=== PATIENT | male | born 1945 | race Caucasian/White ===

== ENCOUNTER 2024-12-01 09:14 | Inpatient (IN) | payer MEDICARE ==
--- NOTE | 2024-12-01 09:27 | ED ---
General Adult HPI - General Chief complaint: Shortness of Breath Stated complaint: SOB Time Seen by Provider: 12/01/24 09:20 Source: patient, EMS, RN notes reviewed, old records reviewed Mode of arrival: EMS - History of Present Illness Initial comments: This is a 79-year-old male who presents to the emergency department complaining of difficulty breathing since he woke up at 6:00 this morning. Patient states he took 6 breathing treatments and hit his inhaler multiple times any continues to have difficulty breathing. Patient Nuys any recent fever chills or cough or patient has any chest pain or palpitation. Patient states his only complaint is that he cannot get a enough air. Patient denies any recent fever chills or cough. Patient has any swelling to the legs or calf tenderness. Patient denies any abdominal pain patient Nuys nausea vomiting diarrhea. - Related Data Home Medications Medication Instructions Recorded Confirmed Albuterol Sulfate [Albuterol 1 - 2 puff PO RT-QID PRN 12/01/24 12/01/24 Sulfate Hfa] Clopidogrel [Plavix] 75 mg PO DAILY 12/01/24 12/01/24 Fluticasone/Umeclidin/Vilanter 1 puff INHALATION RT-DAILY 12/01/24 12/01/24 [Trelegy Ellipta 100-62.5-25] Ipratropium-Albuterol Nebulize 3 ml INHALATION 5XD PRN 12/01/24 12/01/24 [Duoneb 0.5 mg-3 mg/3 ml Soln] Levothyroxine Sodium [Synthroid] 112 mcg PO DAILY 12/01/24 12/01/24 Losartan [Cozaar] 25 mg PO DAILY 12/01/24 12/01/24 carvediloL [Coreg] 6.25 mg PO BID 12/01/24 12/01/24 Allergies Allergy/AdvReac Type Severity Reaction Status Date / Time chlorhexidine Allergy Rash/Hives Verified 12/01/24 11:36 [From ChloraPrep Clear] isopropyl alcohol Allergy Rash/Hives Verified 12/01/24 11:36 [From ChloraPrep Clear] Penicillins Allergy Unknown Verified 12/01/24 11:26 Childhood Review of Systems ROS Statement: Those systems with pertinent positive or pertinent negative responses have been documented in the HPI. ROS Other: All systems not noted in ROS Statement are negative. Past Medical History Past Medical History: COPD, Myocardial Infarction (ND), Thyroid Disorder Additional Past Medical History / Comment(s): emphysema, CAD, Past Surgical History: Appendectomy Additional Past Surgical History / Comment(s): open heart, thyroid removal, Smoking Status: Current every day smoker Past Alcohol Use History: None Reported Past Drug Use History: None Reported General Exam - General Exam Comments Initial Comments: GENERAL: Patient is well-developed and well-nourished. Patient is nontoxic and well- hydrated and is in mild distress. ENT: Neck is soft and supple. No significant lymphadenopathy is noted. Oropharynx is clear. Moist mucous membranes. Neck has full range of motion without eliciting any pain. There is no thyroid enlargement and no masses were felt. EYES: The sclera were anicteric and conjunctiva were pink and moist. Extraocular movements were intact and pupils were equal round and reactive to light. Eyelids were unremarkable. PULMONARY: Patient has diffuse wheezing CARDIOVASCULAR: There is a regular rate and rhythm without any murmurs gallops or rubs. Femoral pulses are equal bilaterally ABDOMEN: Soft and nontender with normal bowel sounds. No palpable organomegaly was noted. There is no palpable pulsatile mass. SKIN: Skin is clear with no lesions or rashes and otherwise unremarkable. NEUROLOGIC: Patient is alert and oriented x3. Cranial nerves II through XII are grossly intact. Motor and sensory are also intact. Normal speech, volume and content. Symmetrical smile. Cerebellar exam grossly intact. MUSCULOSKELETAL: Normal extremities with adequate strength and full range of motion. No lower extremity swelling or edema. No calf tenderness. LYMPHATICS: No significant lymphadenopathy is noted PSYCHIATRIC: Normal psychiatric evaluation. Normal interpersonal interactions appears functi onally intact in deals appropriately with others. No signs of depression. No signs of anxiety. No delusions. No hallucinations. Course Vital Signs 12/01/24 12/01/24 12/01/24 09:16 09:38 09:50 Temperature 97.4 F L Pulse Rate 75 78 76 Respiratory 18 Rate Blood Pressure 126/80 O2 Sat by Pulse 96 Oximetry 12/01/24 12/01/24 12/01/24 10:14 11:03 11:05 Temperature Pulse Rate 84 69 74 Respiratory 18 18 Rate Blood Pressure 111/73 114/70 O2 Sat by Pulse 96 95 Oximetry 03/26/25 03/26/25 03/26/25 11:22 11:59 12:09 Temperature Pulse Rate 80 76 63 Respiratory 20 18 Rate Blood Pressure 127/78 139/81 O2 Sat by Pulse 90 L 94 L Oximetry Medical Decision Making - Medical Decision Making EKG is interpreted by myself but EKG shows a sinus rhythm at 76 bpm [place] interval 157 QRS is 104 QT interval 374 QTc is 404. Patient's EKG shows some slight ST segment depression in V4 through V6. Was pt. sent in by a medical professional or institution (ZARINA Youngblood, ROADING ENGINEER, urgent care, hospital, or detention...) When possible be specific @ -No Did you speak to anyone other than the patient for history (EMS, parent, family, police, friend...)? What history was obtained from this source @ -No Did you review nursing and triage notes (agree or disagree)? Why? @ -I reviewed and agree with nursing and triage notes Were old charts reviewed (outside hosp., previous admission, EMS record, old EKG, old radiological studies, urgent care reports/EKG's, detention records)? Report findings @ -No old charts were reviewed Differential Diagnosis? @ -Differential Dyspnea: Coronary syndrome, arrhythmia, tamponade, asthma, COPD, pulmonary embolism, pneumonia, pneumothorax, pulmonary effusion, anaphylaxis, diabetic ketoacidosis, flailed chest, pulmonary contusion, diaphragmatic rupture, anemia, neuromuscular, this is not meant to be an all-inclusive list. EKG interpreted by me (3pts min.). @ -As above X-rays interpreted by me (1pt min.). @ -Chest x-ray shows no acute abnormality CT interpreted by me (1pt min.). @ -None done U/S interpreted by me (1pt. min.). @ -None done What testing was considered but not performed or refused? (CT, X-rays, U/S, labs)? Why? @ -None What meds were considered but not given or refused? Why? @ -None Did you discuss the management of the patient with other professionals (professionals i.e. ZARINA Youngblood, ROADING ENGINEER, lab, RT, psych nurse, social services manager, plate cleaner, teacher, fourth officer, business case analyst)? Give summary @ -[facility]mit the patient wrote admitting orders Was smoking cessation discussed for >3mins.? @ -No Was critical care preformed (if so, how long)? @ -35 minutes Were there social determinants of health that impacted care today? How? (Homelessness, low income, unemployed, alcoholism, drug addiction, transport ation, low edu. Level, literacy, decrease access to med. care, snf, rehab)? @ -No Was there de-escalation of care discussed even if they declined (Discuss DNR or withdrawal of care, Hospice)? DNR status @ -No What co-morbidities impacted this encounter? (DM, HTN, Smoking, COPD, CAD, Cancer, CVA, ARF, Chemo, Hep., AIDS, mental health diagnosis, sleep apnea, morbid obesity)? @ -None Was patient admitted / discharged? Hospital course, mention meds given and route, prescriptions, significant lab abnormalities, going to OR and other pertinent info. @ -Patient received multiple breathing treatments magnesium and steroids. Patient also received antibiotics because of his COPD history. Patient will be admitted because he is still wheezing diffusely. [facility] Undiagnosed new problem with uncertain prognosis? @ -No Drug Therapy requiring intensive monitoring for toxicity (Heparin, Nitro, Insulin, Cardizem)? @ -No Were any procedures done? @ -No Diagnosis/symptom? @ -COPD exacerbation Acute, or Chronic, or Acute on Chronic? @ -Acute Uncomplicated (without systemic symptoms) or Complicated (systemic symptoms)? @ -Complicated Side effects of treatment? @ -No Exacerbation, Progression, or Severe Exacerbation? @ -Severe exacerbation Poses a threat to life or bodily function? How? (Chest pain, USA, ND, pneumonia, PE, COPD, DKA, ARF, appy, cholecystitis, CVA, Diverticulitis, Homicidal, Suicidal, threat to staff... and all critical care pts) @ -Yes this can lead to hypoxia and endorgan dysfunction - Lab Data Result diagrams: 12/01/24 09:37 12/01/24 09:37 Lab Results 12/01/24 12/01/24 12/01/24 Range/Units 09:37 09:37 09:37 WBC 8.3 (3.8-10.6) k/uL RBC 4.61 (4.30-5.90) m/uL Hgb 14.3 (13.0-17.5) gm/dL Hct 45.6 (39.0-53.0) % MCV 99.0 (80.0-100.0) fL MCH 31.1 (25.0-35.0) pg MCHC 31.4 (31.0-37.0) g/dL RDW 14.5 (11.5-15.5) % Plt Count 210 (150-450) k/uL MPV 7.7 Neutrophils % 76 % Lymphocytes % 10 % Monocytes % 5 % Eosinophils % 7 % Basophils % 0 % Neutrophils # 6.3 (1.3-7.7) k/uL Lymphocytes # 0.8 L (1.0-4.8) k/uL Monocytes # 0.4 (0-1.0) k/uL Eosinophils # 0.6 (0-0.7) k/uL Basophils # 0.0 (0-0.2) k/uL Hypochromasia Slight PT 10.7 (10.0-12.5) sec INR 1.0 (<1.2) APTT 22.9 (22.0-30.0) sec Sodium 134 L (137-145) mmol/L Potassium 4.7 (3.5-5.1) mmol/L Chloride 99 (98-107) mmol/L Carbon Dioxide 32 H (22-30) mmol/L Anion Gap 3 mmol/L BUN 21 H (9-20) mg/dL Creatinine 1.09 (0.66-1.25) mg/dL Est GFR (CKD-EPI)AfAm 75 (>60 ml/min/1.73 sqM) Est GFR (CKD-EPI)NonAf 65 (>60 ml/min/1.73 sqM) Glucose 118 H (74-99) mg/dL Calcium 10.6 H (8.4-10.2) mg/dL Magnesium 1.9 (1.6-2.3) mg/dL Total Bilirubin 0.4 (0.2-1.3) mg/dL AST 23 (17-59) U/L ALT 24 (4-49) U/L Alkaline Phosphatase 40 (38-126) U/L Troponin I (0.000-0.034) ng/mL Total Protein 6.3 (6.3-8.2) g/dL Albumin 3.8 (3.5-5.0) g/dL Influenza Type A (PCR) (Not Detectd) Influenza Type B (PCR) (Not Detectd) RSV (PCR) (Not Detectd) SARS-CoV-2 (PCR) (Not Detectd) 12/01/24 12/01/24 Range/Units 09:37 09:37 WBC (3.8-10.6) k/uL RBC (4.30-5.90) m/uL Hgb (13.0-17.5) gm/dL Hct (39.0-53.0) % MCV (80.0-100.0) fL MCH (25.0-35.0) pg MCHC (31.0-37.0) g/dL RDW (11.5-15.5) % Plt Count (150-450) k/uL MPV Neutrophils % % Lymphocytes % % Monocytes % % Eosinophils % % Basophils % % Neutrophils # (1.3-7.7) k/uL Lymphocytes # (1.0-4.8) k/uL Monocytes # (0-1.0) k/uL Eosinophils # (0-0.7) k/uL Basophils # (0-0.2) k/uL Hypochromasia PT (10.0-12.5) sec INR (<1.2) APTT (22.0-30.0) sec Sodium (137-145) mmol/L Potassium (3.5-5.1) mmol/L Chloride (98-107) mmol/L Carbon Dioxide (22-30) mmol/L Anion Gap mmol/L BUN (9-20) mg/dL Creatinine (0.66-1.25) mg/dL Est GFR (CKD-EPI)AfAm (>60 ml/min/1.73 sqM) Est GFR (CKD-EPI)NonAf (>60 ml/min/1.73 sqM) Glucose (74-99) mg/dL Calcium (8.4-10.2) mg/dL Magnesium (1.6-2.3) mg/dL Total Bilirubin (0.2-1.3) mg/dL AST (17-59) U/L ALT (4-49) U/L Alkaline Phosphatase (38-126) U/L Troponin I <0.012 (0.000-0.034) ng/mL Total Protein (6.3-8.2) g/dL Albumin (3.5-5.0) g/dL Influenza Type A (PCR) Not Detected (Not Detectd) Influenza Type B (PCR) Not Detected (Not Detectd) RSV (PCR) Not Detected (Not Detectd) SARS-CoV-2 (PCR) Not Detected (Not Detectd) Disposition Clinical Impression: Acute exacerbation of chronic obstructive pulmonary disease Disposition: ADMITTED IP TO THIS HOSP Referrals: None,Stated [REFERRING] - 1-2 days Time of Disposition: 12:34
[2024-12-01] MEDS: IPRATROPIUM-ALBUTEROL 3 ML NEB INHALATION STA ×2 (09:35→11:05)
[2024-12-01 09:55] LABS: Basophils % (A) 0 %; Eosinophils # (A) 0.6 k/uL (0-0.7); Eosinophils % (A) 7 %; HCT 45.6 % (39.0-53.0); HGB 14.3 gm/dL (13.0-17.5); Hypochromasia Slight; Lymphocytes # (A) 0.8 k/uL (1.0-4.8); Lymphocytes % (A) 10 %; MCH 31.1 pg (25.0-35.0); MCHC 31.4 g/dL (31.0-37.0); Mean Platelet Volume 7.7; Monocytes # (A) 0.4 k/uL (0-1.0); Monocytes % (A) 5 %; Neutrophils # (A) 6.3 k/uL (1.3-7.7); Neutrophils % (A) 76 %; Platelet Count 210 k/uL (150-450); RBC 4.61 m/uL (4.30-5.90); RDW 14.5 % (11.5-15.5); WBC 8.3 k/uL (3.8-10.6)
[2024-12-01 10:04] LABS: Partial Thromboplastin Time 22.9 sec (22.0-30.0); Prothrombin Time 10.7 sec (10.0-12.5)
[2024-12-01] MEDS: SODIUM CHLORIDE 0.9% 1,000 ML IV ONE (10:05)
[2024-12-01] MEDS: methylPREDNISolone SOD SUCCI 125 MG/2 ML VIAL IV STA (10:06)
[2024-12-01] MEDS: cefTRIAXone IN SWFI 1,000 MG/10 ML SYRINGE IVP STA (10:08)
--- NOTE | 2024-12-01 10:09 | XR ---
EXAMINATION TYPE: XR chest 2V DATE OF EXAM: 12/01/2024 CLINICAL INDICATION: Male, 79 years old with history of difficulty breathing, TECHNIQUE: Frontal and lateral views of the chest are obtained. COMPARISON: None FINDINGS: Sternal wires and mediastinal clips are present. Underlying emphysematous changes suspecte d on lateral view. There is no focal air space opacity, pleural effusion, or pneumothorax seen. Presu med artifact along lateral aspect right lung as pneumothorax would be expected to extend to the apex. Consider repeat frontal upright x-ray versus CT evaluation to further evaluate. The cardiac silhouet te size is within normal limits. Surgical changes cervical spine as partially imaged. IMPRESSION: Chronic changes without acute pulmonary infiltrate. [facility], , 12/01/2024 10:07 AM
[2024-12-01] MEDS: MAGNESIUM SULFATE-D5W PMX 1 GM in DEXTROSE/WATER 1 100ML.BAG IVPB STA (10:12)
[2024-12-01 10:13] LABS: ALT 24 U/L (4-49); AST 23 U/L (17-59); African American GFR (CKD) 75 (>60 ml/min/1.73 sqM); Albumin 3.8 g/dL (3.5-5.0); Alkaline Phosphatase 40 U/L (38-126); Anion Gap 3 mmol/L; Blood Urea Nitrogen 21 mg/dL (9-20); Calcium 10.6 mg/dL (8.4-10.2); Carbon Dioxide 32 mmol/L (22-30); Chloride 99 mmol/L (98-107); Glucose 118 mg/dL (74-99); Magnesium 1.9 mg/dL (1.6-2.3); Non-African American GFR(CKD) 65 (>60 ml/min/1.73 sqM); Potassium 4.7 mmol/L (3.5-5.1); Sodium 134 mmol/L (137-145); Total Bilirubin 0.4 mg/dL (0.2-1.3); Total Protein 6.3 g/dL (6.3-8.2)
[2024-12-01 10:27] LABS: Influenza A Not Detected (Not Detectd); Influenza B Not Detected (Not Detectd); RSV Not Detected (Not Detectd)
[2024-12-01] MEDS ORDERED: NALOXONE 0.4 MG/ML 1 ML VIAL IVP PRN (12:37)
[2024-12-01 13:14] LABS: ABG Base Excess 3.2 mmol/L; ABG HCO3 30 mmol/L (21-25); ABG Oxygen Saturation 91.3 % (94-97); ABG PCO2 51 mmHg (35-45); ABG PH 7.37 (7.35-7.45); ABG PO2 60 mmHg (83-108); ABG TCO2 31 mmol/L (19-24); Allen Test Performed? Yes
[2024-12-01] MEDS ORDERED: IPRATROPIUM-ALBUTEROL 3 ML NEB INHALATION PRN (14:09)
[2024-12-01] MEDS: IPRATROPIUM-ALBUTEROL 3 ML NEB INHALATION SCH (15:46)
[2024-12-01] MEDS: methylPREDNISolone SOD SUCCI 125 MG/2 ML VIAL IV SCH (17:57)
[2024-12-01] MEDS: carvediloL 6.25 MG TAB PO SCH (17:57)
[2024-12-01] MEDS: SYMBICORT 160-4.5 MCG INHALER INHALATION SCH (21:31)
[2024-12-02] MEDS: IPRATROPIUM-ALBUTEROL 3 ML NEB INHALATION PRN (01:09)
[2024-12-02] MEDS: LEVOTHYROXINE 112 MCG TAB PO SCH (06:37)
[2024-12-02] MEDS: TIOTROPIUM 2.5 MCG INHALER INHALATION SCH (08:30)
[2024-12-02] MEDS: CLOPIDOGREL 75 MG TAB PO SCH (09:10)
[2024-12-02] MEDS: LOSARTAN 25 MG TAB PO SCH (09:10)
[2024-12-02] MEDS: NICOTINE 21MG/24HR PATCH TRANSDERM SCH (12:53)
[2024-12-02 15:55] VITALS: BMI 19.3
--- NOTE | 2024-12-02 22:54 | HP ---
HISTORY AND PHYSICAL CHIEF COMPLAINT: Difficulty breathing. HISTORY OF PRESENT ILLNESS: This is another admission for this 79-year-old white male with COPD. He was quite short of breath for 2 to 3 days prior to coming into the hospital and was admitted for exacerbation of chronic obstructive pulmonary disease. REVIEW OF SYSTEMS: He has had no significant chest pain, sputum production, hemoptysis, fever, chills, etc. Past medical history, family history, personal and social histories reveal that he is allergic to penicillin, and iodine. MEDICATIONS: Include, 1. Aspirin. 2. Albuterol. 3. DuoNeb updrafts. 4. Losartan. 5. Levothyroxine. 6. Clopidogrel. 7. Coreg. He does have a history of open-heart surgery with a triple-vessel bypass and he has had history of cardiac stents being placed as well. He does continue to smoke. PHYSICAL EXAMINATION: VITAL SIGNS: Blood pressure 114/80 with a pulse of 55, respirations of 46, and he is afebrile. GENERAL: He appeared to be short of breath. SKIN: Color is normal. Skin is warm and dry. Lymph nodes are not enlarged. HEAD, EARS, EYES, NOSE, MOUTH, AND THROAT: Normal. CHEST: Demonstrated increased AP diameter with poor breath sounds. There are scattered rales and rhonchi throughout and inspiratory and expiratory wheezing. CARDIAC: Demonstrates sinus rhythm. ABDOMEN: Soft, nontender. EXTREMITIES: Normal. NEUROLOGICAL: He is intact. ASSESSMENT: He is admitted to the hospital with diagnoses of, 1. Chronic obstructive pulmonary disease. 2. History of coronary artery disease. 3. Atherosclerotic cardiovascular disease .. 4. Hypothyroidism. PLAN: 1. Bed rest. 2. IV fluids. 3. IV and inhaled steroids. 4. Updrafts. MMODL / IJN: [id number] /
--- NOTE | 2024-12-02 23:06 | PN ---
PROGRESS NOTE DATE OF SERVICE: 12/02/2024 CHIEF COMPLAINT: Exacerbation of COPD. HISTORY OF PRESENT ILLNESS: This gentleman is still quite dyspneic. He has had no fever, chills, and he has had no chest pain. PHYSICAL EXAMINATION: LUNGS: Breath sounds are poor. He has extensive rales and rhonchi throughout with expiratory wheezing. CARDIAC: Normal. IMPRESSION: 1. Exacerbation of chronic obstructive pulmonary disease. 2. History of coronary artery disease. PLAN: Nicotine patch and continue with inpatient management for COPD. MMODL / IJN: [id number] /
[2024-12-03] MEDS: TAMSULOSIN 0.4 MG CAP.ER.24H PO SCH (12:45)
[2024-12-06 09:06] VITALS: RESP 18
[2024-12-06 10:07] VITALS: BP 153/76; PULSE 57; TEMP 97.7
[2024-12-06] MEDS ORDERED: CEPHALEXIN 500 MG CAP PO SCH (13:00)
--- NOTE | 2024-12-06 14:21 | PN ---
PROGRESS NOTE DATE OF SERVICE: 12/03/2024 CHIEF COMPLAINT: Exacerbation of COPD. HISTORY OF PRESENT ILLNESS: This gentleman is still very congested and short of breath. He feels he is improving slightly. He is having difficulty emptying the bladder as well. PHYSICAL EXAMINATION: LUNGS: He has extensive rales and rhonchi throughout. CARDIAC: Normal. ABDOMEN: Soft, nontender. IMPRESSION: 1. Exacerbation of chronic obstructive pulmonary disease. 2. Urinary retention. PLAN: 1. Continue with current program. 2. Try Flomax 0.4 once a day. MMCAML / MARIKAN: [id number] /
--- NOTE | 2024-12-06 14:22 | PN ---
PROGRESS NOTE DATE OF SERVICE: 12/05/2024 CHIEF COMPLAINT: Exacerbation of COPD. HISTORY OF PRESENT ILLNESS: This gentleman is doing well and chest is clearing. PHYSICAL EXAMINATION: VITAL SIGNS: Normal. CHEST: He still has rales and rhonchi and some wheezing, but his chest is generally more clear. IMPRESSION: Exacerbation of chronic obstructive pulmonary disease. PLAN: Probably home in the next day or two. MMODL / IJN: [id number] /
--- NOTE | 2024-12-06 14:22 | PN ---
PROGRESS NOTE DATE OF SERVICE: 12/04/2024 CHIEF COMPLAINT: Exacerbated COPD and urinary retention. HISTORY OF PRESENT ILLNESS: This gentleman is doing a little bit better. He feels he can void much more easily now. He is still quite dyspneic and short of breath with lung congestion. PHYSICAL EXAMINATION: VITAL SIGNS: He is afebrile. CHEST: Demonstrates diffuse and scattered rales, rhonchi, and a productive cough. CARDIAC: Normal. IMPRESSION: 1. Exacerbation of chronic obstructive pulmonary disease. 2. Urinary retention. PLAN: Continue with Pulmonary management until he is improved enough to be able to be discharged. MMODL / IJN: [id number] /
--- NOTE | 2024-12-06 15:02 | DS ---
DISCHARGE SUMMARY CHIEF COMPLAINT: Difficulty breathing. HISTORY OF PRESENT ILLNESS AND PHYSICAL EXAM: Details of this man's history and physical can be found in the initial workup. LABORATORY STUDIES: While he was in the hospital, he had laboratory studies, details of which can be found in the laboratory section of his chart. COURSE IN THE HOSPITAL: After admission, he was placed on bedrest, started on intravenous fluids and placed on updrafts, IV and inhaled steroids. He slowly improved. He was doing well and it was felt that he could be discharged on the and he will go home on his usual activity and diet and regular medications in addition to Trelegy and a Medrol Dosepak. He will follow up in the office. FINAL DIAGNOSES: 1. Exacerbation of chronic obstructive pulmonary disease. 2. Coronary artery disease. OPERATIONS: None. CONSULTATIONS: None. CONDITION: He is improved. EDMUNDO / ALEKSANDRA: [id number] /
[2024-12-07] MEDS ORDERED: methylPREDNISolone 4 MG TAB TAPER PO SCH (09:00)
== END 2024-12-06 11:35 | disposition home or self-care (01) | DRG 192 ==
LOC: EC 09:14 → SUPCPDRO 09:14 → 5NMEDONC 12:37 → 4SSUR 14:03
PROVIDERS: ADMIT Family Medicine; ATTEND Family Medicine
DX: J44.1 Chronic obstructive pulmonary disease with (acute) exacerbation (principal); E03.9 Hypothyroidism, unspecified; F17.200 Nicotine dependence, unspecified, uncomplicated; R33.9 Retention of urine, unspecified; I25.10 Atherosclerotic heart disease of native coronary artery without angina pectoris; I25.2 Old myocardial infarction; Z79.02 Long term (current) use of antithrombotics/antiplatelets; Z79.890 Hormone replacement therapy; Z88.0 Allergy status to penicillin; Z88.8 Allergy status to other drugs, medicaments and biological substances
CPT/HCPCS: 36415; 36600; 71046; 80053; 82805; 83605; 83735; 84484; 85025; 85610; 85730; 87040; 87636; 93005; 94640; 94760; 96365; 96366; 96375; 99291